=== PATIENT | male | born 1950 | race Caucasian/White ===

== ENCOUNTER 2021-03-16 13:06 | Inpatient (IN) | payer MEDICARE ==
[2021-03-16 14:10] LABS: #Basophils 0.1 thou/uL (0.0-0.2); #Lymphocytes 1.4 thou/uL (1.20-3.40); #Monocytes 0.6 thou/uL (0.11-0.59); #Neutrophils 3.1 thou/uL (1.40-6.50); %Eosinophils 0.4 % (0.0-10.0); %Monocytes 11.2 % (0.0-10.0); %Neutrophils 60.3 % (42.0-75.0); Hemoglobin 15.8 g/dL (14.0-18.0); Mean Corpuscular HGB CONC 34.3 g/dL (32.0-36.0); Mean Corpuscular Hemoglobin 37.6 pg (27.0-31.0); Mean Platelet Volume 8.3 fL (7.4-10.4); Platelet Count 186 thou/uL (130-400); RBC Distribution Width 11.5 % (11.5-14.5); Red Blood Cell (RBC) Count 4.19 mill/uL (4.70-6.10); White Blood Cell (WBC) Count 5.1 thou/uL (4.8-10.8)
[2021-03-16 14:25] LABS: MDiff Complete? YES; Macrocytosis SLIGHT = 6-15 cells (100X) (0-5/hpf); Platelet Morphology Comment Appears Adequate
[2021-03-16 14:31] LABS: Acetaminophen Less than 6.0 mcg/mL (10.0-30.0); Alcohol Less than 10 mg/dL (Less than 10); CK (CPK) 207 U/L (30-200); Salicylate Less than 8.0 mg/dL (15.0-30.0)
[2021-03-16 14:35] LABS: ALT (SGPT) 18 U/L (8-55); AST (SGOT) 23 U/L (5-34); Albumin 4.2 g/dL (3.4-4.8); Alkaline Phosphatase 75 U/L (40-110); Anion Gap 14 mmol/L (10-20); BUN (Urea Nitrogen) 9 mg/dL (8.4-25.7); Bilirubin, Total 1.4 mg/dL (0.2-1.2); Calc. Creatinine Clearance 0 mL/min (70-130); Carbon Dioxide 23 mmol/L (23-31); Chloride 101 mmol/L (98-107); Globulin 2.7 g/dL (2.4-3.5); Glucose 92 mg/dL (80-115); Lipase 35 U/L (8-78); Potassium 4.2 mmol/L (3.5-5.1); Protein, Total 6.9 g/dL (5.8-8.1); Sodium 134 mmol/L (136-145)
[2021-03-16 14:49] LABS: Bilirubin Negative (Negative); Blood, Urine Negative (Negative); Clarity Clear (Clear); Glucose, Urine (Dipstick) Normal (Negative); Ketone, Urine 20 mg/dL (Negative); Leukocyte Negative Leu/uL (Negative); Nitrite Negative (Negative); Protein, Urine (Dipstick) 10 mg/dL (Neg-Trace)
[2021-03-16 15:11] LABS: Amphetamine Not Detected (NotDetected); Barbiturates Screen Not Detected (NotDetected); Benzodiazepine Screen Not Detected (NotDetected); Cocaine Metabolite Screen Not Detected (NotDetected); Methadone Not Detected (NotDetected); Methamphetamine Not Detected (NotDetected); Opiate Screen Not Detected (NotDetected); Oxycodone Screen Not Detected (NotDetected); Phencyclidine (PCP) Not Detected (NotDetected); THC/Cannabinoid Screen Detected (NotDetected); Tricyclic Screen Not Detected (NotDetected)
[2021-03-16] MEDS ORDERED: Lorazepam 2 MG/ML VIAL ONE (16:42)
[2021-03-16] MEDS ORDERED: Haloperidol Lactate 5 MG/ML VIAL ONE (16:55)
[2021-03-16] MEDS ORDERED: Acetaminophen 325 MG TAB PO PRN (17:35)
[2021-03-16] MEDS ORDERED: Ondansetron ODT 4 MG TAB PO PRN (17:35)
[2021-03-16] MEDS ORDERED: Lorazepam 2 MG/ML VIAL IM PRN (17:35)
[2021-03-16] MEDS ORDERED: Electrolyte Replacement Protocol 1 EACH FS SCH (17:45)
[2021-03-16 18:39] LABS: Alcohol Less than 10 mg/dL (Less than 10); Bilirubin, Direct 0.6 mg/dL (0.1-0.3); Phosphorus 2.4 mg/dL (2.3-4.7)
[2021-03-16] MEDS ORDERED: hydrALAZINE 20 MG/ML VIAL SLOW IVP PRN (18:56)
[2021-03-16 18:58] LABS: Syphilis Antibody Nonreactive (Nonreactive); Syphilis Antibody Index 0.05 S/CO (<1.00 Non-Reactive)
[2021-03-16] MEDS: Lorazepam 1 MG TAB PO SCH (21:17)
[2021-03-16] MEDS: Thiamine HCl 200 MG/2 ML VIAL SLOW IVP SCH (22:18)
[2021-03-16 22:20] VITALS: BMI 21.9
[2021-03-17] MEDS: Lorazepam 2 MG/ML VIAL SLOW IVP PRN ×3 (00:53→13:25)
[2021-03-17] MEDS: Lorazepam 1 MG TAB PO SCH ×4 (02:09→18:19)
[2021-03-17] MEDS ORDERED: Ziprasidone 20 MG VIAL IM SCH (06:00)
[2021-03-17] MEDS ORDERED: Sterile Water 10 ML ONE (06:14)
[2021-03-17] MEDS: Folic Acid 1 MG TAB PO SCH ×2 (08:41→08:54)
[2021-03-17] MEDS: Enoxaparin Sodium 40 MG/0.4 ML SYRINGE SC SCH (08:41)
[2021-03-17] MEDS: Multivit, Therapeutic 1 TAB PO SCH ×2 (08:41→08:54)
[2021-03-17 10:20] LABS: #Eosinphils 0.1 thou/uL (0.0-0.7); #Lymphocytes 1.4 thou/uL (1.20-3.40); #Monocytes 0.5 thou/uL (0.11-0.59); #Neutrophils 3.4 thou/uL (1.40-6.50); %Basophils 0.7 % (0.0-1.0); %Eosinophils 1.6 % (0.0-10.0); %Lymphocytes 26.2 % (21.0-51.0); %Monocytes 8.8 % (0.0-10.0); %Neutrophils 62.7 % (42.0-75.0); Hemoglobin 17.2 g/dL (14.0-18.0); Mean Corpuscular HGB CONC 34.1 g/dL (32.0-36.0); Mean Corpuscular Hemoglobin 37.3 pg (27.0-31.0); Mean Platelet Volume 8.2 fL (7.4-10.4); Platelet Count 170 thou/uL (130-400); RBC Distribution Width 11.4 % (11.5-14.5); Red Blood Cell (RBC) Count 4.62 mill/uL (4.70-6.10); White Blood Cell (WBC) Count 5.5 thou/uL (4.8-10.8)
[2021-03-17 10:49] LABS: ALT (SGPT) 19 U/L (8-55); AST (SGOT) 35 U/L (5-34); Alkaline Phosphatase 74 U/L (40-110); Anion Gap 15 mmol/L (10-20); BUN (Urea Nitrogen) 9 mg/dL (8.4-25.7); Bilirubin, Total 1.4 mg/dL (0.2-1.2); CK (CPK) 539 U/L (30-200); Calc. Creatinine Clearance 84 mL/min (70-130); Calcium 9.8 mg/dL (7.8-10.44); Carbon Dioxide 23 mmol/L (23-31); Chloride 100 mmol/L (98-107); Globulin 3.4 g/dL (2.4-3.5); Glucose 85 mg/dL (80-115); Protein, Total 7.4 g/dL (5.8-8.1); Sodium 134 mmol/L (136-145)
[2021-03-17] MEDS: Multivitamins, Adult 10 ML, Folic Acid 1 MG, Thiamine HCl 100 MG in Dextrose 5 %-0.45 %... IV SCH (13:24)
[2021-03-17] MEDS: D5 0.9% NS w/ 20 mEq KCl 1,000 ML IV SCH (13:24)
[2021-03-17 17:06] LABS: SARS-CoV-2 PCR by NAA Not Detected (NotDetected)
[2021-03-17] MEDS ORDERED: Lorazepam 1 MG TAB PO PRN (17:37)
[2021-03-17] MEDS: Thiamine HCl 200 MG/2 ML VIAL SLOW IVP SCH (18:32)
[2021-03-17] MEDS: Labetalol HCl 100 MG/20 ML VIAL SLOW IVP PRN (20:10)
[2021-03-18] MEDS: Lorazepam 1 MG TAB PO SCH ×2 (00:35→05:57)
[2021-03-18] MEDS ORDERED: Lorazepam 2 MG/ML VIAL SLOW IVP SCH (00:45)
[2021-03-18] MEDS: Labetalol HCl 100 MG/20 ML VIAL SLOW IVP PRN ×2 (01:34→22:22)
[2021-03-18] MEDS: D5 0.9% NS w/ 20 mEq KCl 1,000 ML IV SCH ×2 (04:19→17:01)
[2021-03-18 06:22] LABS: #Eosinphils 0.1 thou/uL (0.0-0.7); #Lymphocytes 1.3 thou/uL (1.20-3.40); #Monocytes 0.6 thou/uL (0.11-0.59); #Neutrophils 2.9 thou/uL (1.40-6.50); %Basophils 0.8 % (0.0-1.0); %Eosinophils 2.9 % (0.0-10.0); %Lymphocytes 25.5 % (21.0-51.0); %Monocytes 11.1 % (0.0-10.0); %Neutrophils 59.7 % (42.0-75.0); Hemoglobin 16.3 g/dL (14.0-18.0); Mean Corpuscular HGB CONC 33.9 g/dL (32.0-36.0); Mean Corpuscular Hemoglobin 37.1 pg (27.0-31.0); Mean Platelet Volume 8.3 fL (7.4-10.4); Platelet Count 169 thou/uL (130-400); RBC Distribution Width 11.4 % (11.5-14.5); White Blood Cell (WBC) Count 4.9 thou/uL (4.8-10.8)
[2021-03-18 06:46] LABS: ALT (SGPT) 17 U/L (8-55); AST (SGOT) 29 U/L (5-34); Albumin 3.8 g/dL (3.4-4.8); Alkaline Phosphatase 72 U/L (40-110); Anion Gap 13 mmol/L (10-20); BUN (Urea Nitrogen) 5 mg/dL (8.4-25.7); Bilirubin, Total 1.2 mg/dL (0.2-1.2); Calc. Creatinine Clearance 91 mL/min (70-130); Calcium 9.1 mg/dL (7.8-10.44); Carbon Dioxide 23 mmol/L (23-31); Chloride 103 mmol/L (98-107); Glucose 116 mg/dL (80-115); Magnesium 1.9 mg/dL (1.6-2.6); Potassium 3.6 mmol/L (3.5-5.1); Protein, Total 6.8 g/dL (5.8-8.1); Sodium 135 mmol/L (136-145)
[2021-03-18] MEDS ORDERED: Magnesium 2 GM/50 ML 2 GM in Premix Bag 1 BAG IVPB SCH (08:00)
[2021-03-18] MEDS: Enoxaparin Sodium 40 MG/0.4 ML SYRINGE SC SCH (08:56)
[2021-03-18] MEDS: Lorazepam 2 MG/ML VIAL SLOW IVP PRN ×4 (08:56→23:27)
[2021-03-18] MEDS: Multivitamins, Adult 10 ML, Folic Acid 1 MG, Thiamine HCl 100 MG in Dextrose 5 %-0.45 %... IV SCH (13:06)
[2021-03-18] MEDS ORDERED: Lorazepam 1 MG TAB PO PRN (17:37)
[2021-03-18] MEDS: Thiamine HCl 200 MG/2 ML VIAL SLOW IVP SCH (17:53)
[2021-03-18] MEDS ORDERED: Lorazepam 0.5 MG TAB PO SCH (18:00)
[2021-03-19] MEDS: Lorazepam 2 MG/ML VIAL SLOW IVP PRN ×4 (01:49→21:03)
[2021-03-19 05:46] LABS: #Eosinphils 0.2 thou/uL (0.0-0.7); #Monocytes 0.5 thou/uL (0.11-0.59); #Neutrophils 2.6 thou/uL (1.40-6.50); %Basophils 0.8 % (0.0-1.0); %Eosinophils 3.8 % (0.0-10.0); %Lymphocytes 23.7 % (21.0-51.0); %Neutrophils 59.7 % (42.0-75.0); Hemoglobin 15.5 g/dL (14.0-18.0); Mean Corpuscular HGB CONC 35.4 g/dL (32.0-36.0); Mean Corpuscular Hemoglobin 38.3 pg (27.0-31.0); Platelet Count 169 thou/uL (130-400); RBC Distribution Width 11.3 % (11.5-14.5); Red Blood Cell (RBC) Count 4.03 mill/uL (4.70-6.10); White Blood Cell (WBC) Count 4.4 thou/uL (4.8-10.8)
[2021-03-19 06:11] LABS: ALT (SGPT) 17 U/L (8-55); AST (SGOT) 28 U/L (5-34); Albumin 3.5 g/dL (3.4-4.8); Alkaline Phosphatase 69 U/L (40-110); Anion Gap 11 mmol/L (10-20); BUN (Urea Nitrogen) Less than 4 mg/dL (8.4-25.7); Bilirubin, Total 1.5 mg/dL (0.2-1.2); Calc. Creatinine Clearance 104 mL/min (70-130); Calcium 8.7 mg/dL (7.8-10.44); Carbon Dioxide 21 mmol/L (23-31); Chloride 104 mmol/L (98-107); Globulin 2.8 g/dL (2.4-3.5); Glucose 116 mg/dL (80-115); Potassium 3.8 mmol/L (3.5-5.1); Protein, Total 6.3 g/dL (5.8-8.1); Sodium 132 mmol/L (136-145)
[2021-03-19] MEDS: D5 0.9% NS w/ 20 mEq KCl 1,000 ML IV SCH ×2 (09:00→20:48)
[2021-03-19] MEDS ORDERED: cloNIDine 0.1mg/24 Hour PATCH TD SCH (09:00)
[2021-03-19] MEDS: Enoxaparin Sodium 40 MG/0.4 ML SYRINGE SC SCH (09:37)
[2021-03-19] MEDS: Multivitamins, Adult 10 ML, Folic Acid 1 MG, Thiamine HCl 100 MG in Dextrose 5 %-0.45 %... IV SCH (13:07)
[2021-03-19] MEDS ORDERED: Lorazepam 0.5 MG TAB PO PRN (17:37)
[2021-03-19] MEDS ORDERED: Thiamine 100 MG TAB PO SCH (18:00)
[2021-03-19] MEDS: Labetalol HCl 100 MG/20 ML VIAL SLOW IVP PRN (21:03)
[2021-03-20 05:31] LABS: #Eosinphils 0.2 thou/uL (0.0-0.7); #Lymphocytes 1.1 thou/uL (1.20-3.40); #Monocytes 0.5 thou/uL (0.11-0.59); #Neutrophils 3.4 thou/uL (1.40-6.50); %Basophils 0.2 % (0.0-1.0); %Eosinophils 3.7 % (0.0-10.0); %Lymphocytes 20.5 % (21.0-51.0); %Monocytes 10.2 % (0.0-10.0); %Neutrophils 65.4 % (42.0-75.0); Hemoglobin 15.7 g/dL (14.0-18.0); Mean Corpuscular HGB CONC 34.9 g/dL (32.0-36.0); Mean Corpuscular Hemoglobin 37.8 pg (27.0-31.0); Mean Platelet Volume 8.1 fL (7.4-10.4); Platelet Count 183 thou/uL (130-400); RBC Distribution Width 11.4 % (11.5-14.5); Red Blood Cell (RBC) Count 4.16 mill/uL (4.70-6.10); White Blood Cell (WBC) Count 5.2 thou/uL (4.8-10.8)
[2021-03-20 05:56] LABS: ALT (SGPT) 18 U/L (8-55); AST (SGOT) 25 U/L (5-34); Albumin 3.7 g/dL (3.4-4.8); Alkaline Phosphatase 73 U/L (40-110); Anion Gap 10 mmol/L (10-20); BUN (Urea Nitrogen) 4 mg/dL (8.4-25.7); Bilirubin, Total 1.6 mg/dL (0.2-1.2); Calc. Creatinine Clearance 98 mL/min (70-130); Carbon Dioxide 23 mmol/L (23-31); Chloride 99 mmol/L (98-107); Globulin 2.9 g/dL (2.4-3.5); Glucose 110 mg/dL (80-115); Protein, Total 6.6 g/dL (5.8-8.1); Sodium 128 mmol/L (136-145)
[2021-03-20] MEDS: D5 0.9% NS w/ 20 mEq KCl 1,000 ML IV SCH ×2 (08:35→22:20)
[2021-03-20] MEDS: Lorazepam 2 MG/ML VIAL SLOW IVP PRN ×2 (08:35→23:16)
[2021-03-20] MEDS: Labetalol HCl 100 MG/20 ML VIAL SLOW IVP PRN ×2 (08:35→20:30)
[2021-03-20] MEDS: Enoxaparin Sodium 40 MG/0.4 ML SYRINGE SC SCH (10:07)
[2021-03-20] MEDS: Multivitamins, Adult 10 ML, Folic Acid 1 MG, Thiamine HCl 100 MG in Dextrose 5 %-0.45 %... IV SCH (11:31)
[2021-03-21 06:09] LABS: #Eosinphils 0.1 thou/uL (0.0-0.7); #Lymphocytes 0.9 thou/uL (1.20-3.40); #Monocytes 0.7 thou/uL (0.11-0.59); #Neutrophils 3.5 thou/uL (1.40-6.50); %Basophils 0.7 % (0.0-1.0); %Eosinophils 2.3 % (0.0-10.0); %Lymphocytes 17.5 % (21.0-51.0); %Monocytes 13.4 % (0.0-10.0); %Neutrophils 66.1 % (42.0-75.0); Hemoglobin 14.7 g/dL (14.0-18.0); Mean Corpuscular HGB CONC 34.9 g/dL (32.0-36.0); Mean Corpuscular Hemoglobin 38.1 pg (27.0-31.0); Mean Platelet Volume 8.1 fL (7.4-10.4); Platelet Count 183 thou/uL (130-400); RBC Distribution Width 11.2 % (11.5-14.5); Red Blood Cell (RBC) Count 3.86 mill/uL (4.70-6.10); White Blood Cell (WBC) Count 5.3 thou/uL (4.8-10.8)
[2021-03-21 06:32] LABS: ALT (SGPT) 18 U/L (8-55); AST (SGOT) 22 U/L (5-34); Albumin 3.5 g/dL (3.4-4.8); Alkaline Phosphatase 68 U/L (40-110); Anion Gap 12 mmol/L (10-20); BUN (Urea Nitrogen) 4 mg/dL (8.4-25.7); Bilirubin, Total 1.6 mg/dL (0.2-1.2); Calc. Creatinine Clearance 98 mL/min (70-130); Calcium 9.3 mg/dL (7.8-10.44); Carbon Dioxide 20 mmol/L (23-31); Chloride 103 mmol/L (98-107); Globulin 2.8 g/dL (2.4-3.5); Glucose 115 mg/dL (80-115); Protein, Total 6.3 g/dL (5.8-8.1); Sodium 131 mmol/L (136-145)
[2021-03-21] MEDS: Aspirin 81 mg Enteric Coated Tablet PO SCH (09:20)
[2021-03-21] MEDS: Lisinopril 20 MG TAB PO SCH (09:20)
[2021-03-21] MEDS: Enoxaparin Sodium 40 MG/0.4 ML SYRINGE SC SCH (09:20)
[2021-03-21] MEDS: Nicotine 21 MG PATCH TD SCH (09:22)
[2021-03-21] MEDS: Lorazepam 2 MG/ML VIAL SLOW IVP PRN ×2 (15:11→19:53)
[2021-03-21] MEDS: Multivitamins, Adult 10 ML, Folic Acid 1 MG, Thiamine HCl 100 MG in Dextrose 5 %-0.45 %... IV SCH (15:26)
[2021-03-21] MEDS: D5 0.9% NS w/ 20 mEq KCl 1,000 ML IV SCH (15:26)
[2021-03-21] MEDS: Nystatin Powder 15 GM BOT TOP PRN (17:19)
[2021-03-22] MEDS: D5 0.9% NS w/ 20 mEq KCl 1,000 ML IV SCH ×2 (05:05→18:19)
[2021-03-22 06:26] LABS: ALT (SGPT) 16 U/L (8-55); AST (SGOT) 20 U/L (5-34); Albumin 3.5 g/dL (3.4-4.8); Alkaline Phosphatase 63 U/L (40-110); Anion Gap 15 mmol/L (10-20); BUN (Urea Nitrogen) 6 mg/dL (8.4-25.7); Calc. Creatinine Clearance 99 mL/min (70-130); Calcium 9.5 mg/dL (7.8-10.44); Carbon Dioxide 20 mmol/L (23-31); Chloride 102 mmol/L (98-107); Glucose 107 mg/dL (80-115); Potassium 3.6 mmol/L (3.5-5.1); Protein, Total 6.5 g/dL (5.8-8.1); Sodium 133 mmol/L (136-145)
[2021-03-22 06:58] LABS: Band 1 % (5-11); Eosinophils 2 % (0-10); Hemoglobin 15.4 g/dL (14.0-18.0); Lymphocytes 33 % (21-51); MDiff Complete? YES; Macrocytosis SLIGHT = 6-15 cells (100X) (0-5/hpf); Mean Corpuscular HGB CONC 34.9 g/dL (32.0-36.0); Mean Corpuscular Hemoglobin 38.4 pg (27.0-31.0); Mean Platelet Volume 9.5 fL (7.4-10.4); Monocytes 15 % (0-10); Neutrophil 47 % (42-75); Platelet Count 138 thou/uL (130-400); Platelet Morphology Comment Appears Adequate; RBC Distribution Width 11.1 % (11.5-14.5); Reactive Lymphocytes 2 % (0-10); White Blood Cell (WBC) Count 4.3 thou/uL (4.8-10.8)
[2021-03-22] MEDS: Lisinopril 20 MG TAB PO SCH (09:20)
[2021-03-22] MEDS: Enoxaparin Sodium 40 MG/0.4 ML SYRINGE SC SCH (09:20)
[2021-03-22] MEDS: Nicotine 21 MG PATCH TD SCH (09:20)
[2021-03-22] MEDS: Aspirin 81 mg Enteric Coated Tablet PO SCH (09:20)
[2021-03-22] MEDS: Multivitamins, Adult 10 ML, Folic Acid 1 MG, Thiamine HCl 100 MG in Dextrose 5 %-0.45 %... IV SCH (13:12)
[2021-03-22] MEDS: Nystatin Powder 15 GM BOT TOP PRN (13:15)
[2021-03-22] MEDS ORDERED: Thiamine 100 MG TAB PO SCH (17:45)
[2021-03-23] MEDS ORDERED: Thiamine 100 MG TAB PO SCH (09:00)
[2021-03-23] MEDS: Lisinopril 20 MG TAB PO SCH (09:03)
[2021-03-23] MEDS: Nicotine 21 MG PATCH TD SCH (09:03)
[2021-03-23] MEDS: Enoxaparin Sodium 40 MG/0.4 ML SYRINGE SC SCH (09:03)
[2021-03-23] MEDS: Aspirin 81 mg Enteric Coated Tablet PO SCH (09:03)
[2021-03-23] MEDS: Labetalol HCl 100 MG/20 ML VIAL SLOW IVP PRN (15:33)
[2021-03-23 15:51] VITALS: BP 213/120; TEMP 98.8
== END 2021-03-23 19:30 | disposition home or self-care (01) | DRG 896 ==
LOC: ERS 13:06 → NEURO 17:21
PROVIDERS: ADMIT Internal Medicine; ATTEND Family Medicine
DX: F10.231 Alcohol dependence with withdrawal delirium (principal); G92.8 Other toxic encephalopathy; E44.0 Moderate protein-calorie malnutrition; E87.1 Hypo-osmolality and hyponatremia; Z20.822 Contact with and (suspected) exposure to COVID-19; J44.9 Chronic obstructive pulmonary disease, unspecified; I10 Essential (primary) hypertension; N40.0 Benign prostatic hyperplasia without lower urinary tract symptoms; F17.210 Nicotine dependence, cigarettes, uncomplicated; F12.10 Cannabis abuse, uncomplicated; Z68.22 Body mass index [BMI] 22.0-22.9, adult; Z78.1 Physical restraint status
CPT/HCPCS: 36415; 36416; 70450; 71045; 80053; 80306; 80307; 81003; 82140; 82248; 82550; 82607; 82746; 83605; 83690; 83735; 83880; 84100; 84443; 84484; 85025; 86780; 87040; 87086; 93005; 94760; 95816; 95819; 95957; J0360; J1630; J1650; J2060; J3411; J3475; J3480; J3486; J7042; U0003; U0005

== ENCOUNTER 2021-10-19 20:59 | Inpatient (IN) | payer MEDICARE ==
[2021-10-19 21:56] LABS: #Eosinphils 0.2 thou/uL (0.0-0.7); #Lymphocytes 2.1 thou/uL (1.20-3.40); #Monocytes 0.5 thou/uL (0.11-0.59); #Neutrophils 3.7 thou/uL (1.40-6.50); %Basophils 0.5 % (0.0-1.0); %Lymphocytes 31.7 % (21.0-51.0); %Neutrophils 56.8 % (42.0-75.0); Hemoglobin 10.8 g/dL (14.0-18.0); Mean Corpuscular HGB CONC 36.1 g/dL (32.0-36.0); Mean Platelet Volume 7.5 fL (7.4-10.4); Platelet Count 268 thou/uL (130-400); RBC Distribution Width 11.3 % (11.5-14.5); Red Blood Cell (RBC) Count 2.76 mill/uL (4.70-6.10); White Blood Cell (WBC) Count 6.5 thou/uL (4.8-10.8)
[2021-10-19 22:15] LABS: ALT (SGPT) 12 U/L (8-55); AST (SGOT) 14 U/L (5-34); Albumin 3.9 g/dL (3.4-4.8); Alkaline Phosphatase 74 U/L (40-110); Anion Gap 14 mmol/L (10-20); BUN (Urea Nitrogen) 25 mg/dL (8.4-25.7); Bilirubin, Total 0.7 mg/dL (0.2-1.2); CK (CPK) 42 U/L (30-200); Calc. Creatinine Clearance 0 mL/min (70-130); Calcium 10.3 mg/dL (7.8-10.44); Carbon Dioxide 26 mmol/L (23-31); Chloride 99 mmol/L (98-107); Globulin 2.7 g/dL (2.4-3.5); Glucose 104 mg/dL (80-115); Potassium 3.8 mmol/L (3.5-5.1); Protein, Total 6.6 g/dL (5.8-8.1); Sodium 135 mmol/L (136-145)
[2021-10-19] MEDS ORDERED: Magnesium 2 GM/50 ML BAG (IN WATER) ONE (22:19)
[2021-10-20] MEDS ORDERED: Acetaminophen 325 MG TAB PO PRN (01:00)
[2021-10-20] MEDS ORDERED: Ondansetron PF 4 MG/2 ML Vial IVP PRN ×2 (01:00→03:08)
[2021-10-20] MEDS ORDERED: Ondansetron ODT 4 MG TAB SL PRN (01:00)
[2021-10-20] MEDS ORDERED: Sodium Chloride 0.9% 1,000 ML IV SCH (01:00)
[2021-10-20] MEDS ORDERED: Senokot S 8.6-50 MG TAB PO SCH (02:00)
[2021-10-20] MEDS ORDERED: Polyethylene Glycol 3350 17 GM Packet PO SCH (02:00)
[2021-10-20] MEDS ORDERED: Acetaminophen 500 MG TAB PO PRN (03:08)
[2021-10-20] MEDS ORDERED: Ondansetron ODT 4 MG TAB PO PRN (03:08)
[2021-10-20 07:47] LABS: #Eosinphils 0.3 thou/uL (0.0-0.7); #Lymphocytes 1.8 thou/uL (1.20-3.40); #Monocytes 0.5 thou/uL (0.11-0.59); #Neutrophils 4.8 thou/uL (1.40-6.50); %Basophils 0.3 % (0.0-1.0); %Eosinophils 3.7 % (0.0-10.0); %Monocytes 6.9 % (0.0-10.0); %Neutrophils 65.1 % (42.0-75.0); Hemoglobin 10.9 g/dL (14.0-18.0); Mean Corpuscular HGB CONC 34.3 g/dL (32.0-36.0); Mean Corpuscular Hemoglobin 37.3 pg (27.0-31.0); Mean Platelet Volume 7.4 fL (7.4-10.4); Platelet Count 254 thou/uL (130-400); RBC Distribution Width 11.3 % (11.5-14.5); Red Blood Cell (RBC) Count 2.92 mill/uL (4.70-6.10); White Blood Cell (WBC) Count 7.4 thou/uL (4.8-10.8)
[2021-10-20 07:53] LABS: ALT (SGPT) 14 U/L (8-55); AST (SGOT) 13 U/L (5-34); Albumin 3.9 g/dL (3.4-4.8); Alkaline Phosphatase 72 U/L (40-110); Anion Gap 12 mmol/L (10-20); BUN (Urea Nitrogen) 22 mg/dL (8.4-25.7); Bilirubin, Total 0.7 mg/dL (0.2-1.2); Calc. Creatinine Clearance 46 mL/min (70-130); Calcium 10.2 mg/dL (7.8-10.44); Carbon Dioxide 26 mmol/L (23-31); Chloride 101 mmol/L (98-107); Globulin 2.6 g/dL (2.4-3.5); Glucose 95 mg/dL (80-115); Potassium 4.2 mmol/L (3.5-5.1); Protein, Total 6.5 g/dL (5.8-8.1); Sodium 135 mmol/L (136-145)
[2021-10-20 08:30] LABS: MDiff Complete? YES; Macrocytosis SLIGHT = 6-15 cells (100X) (0-5/hpf); Platelet Morphology Comment Appears Adequate; Polychromasia SLIGHT = 2-3 cells (100X) (0-2/hpf)
[2021-10-20] MEDS: Famotidine 20 MG TAB PO SCH (08:42)
[2021-10-20] MEDS: Aspirin 81 mg Enteric Coated Tablet PO SCH (08:42)
[2021-10-20] MEDS: Thiamine 100 MG TAB PO SCH (08:42)
[2021-10-20] MEDS: Polyethylene Glycol 3350 17 GM Packet PO SCH (08:43)
[2021-10-20] MEDS: Senokot S 8.6-50 MG TAB PO SCH ×2 (08:43→20:20)
[2021-10-20 09:38] LABS: Magnesium 2.2 mg/dL (1.6-2.6)
[2021-10-20] MEDS: Sodium Chloride 0.9% 1,000 ML IV SCH ×2 (11:35→22:13)
[2021-10-20] MEDS ORDERED: Lorazepam 1 MG TAB PO PRN (15:22)
[2021-10-20] MEDS ORDERED: Lorazepam 2 MG/ML VIAL IM PRN (15:22)
[2021-10-20] MEDS ORDERED: Electrolyte Replacement Protocol 1 EACH FS SCH (15:30)
[2021-10-20 16:26] LABS: #Eosinphils 0.2 thou/uL (0.0-0.7); #Lymphocytes 1.6 thou/uL (1.20-3.40); #Monocytes 0.5 thou/uL (0.11-0.59); #Neutrophils 5.1 thou/uL (1.40-6.50); %Basophils 0.4 % (0.0-1.0); %Eosinophils 2.8 % (0.0-10.0); %Lymphocytes 20.9 % (21.0-51.0); %Neutrophils 68.9 % (42.0-75.0); Hemoglobin 10.7 g/dL (14.0-18.0); Mean Corpuscular HGB CONC 35.6 g/dL (32.0-36.0); Mean Corpuscular Hemoglobin 38.6 pg (27.0-31.0); Mean Platelet Volume 7.3 fL (7.4-10.4); Platelet Count 266 thou/uL (130-400); RBC Distribution Width 11.2 % (11.5-14.5); Red Blood Cell (RBC) Count 2.77 mill/uL (4.70-6.10); White Blood Cell (WBC) Count 7.4 thou/uL (4.8-10.8)
[2021-10-20] MEDS ORDERED: Multivit, Therapeutic 1 TAB PO SCH (16:45)
[2021-10-20] MEDS ORDERED: Electrolyte Replacement Protocol FS PRN (16:45)
[2021-10-20] MEDS ORDERED: Lorazepam 0.5 MG TAB PO SCH (16:45)
[2021-10-20] MEDS ORDERED: Folic Acid 1 MG TAB PO SCH (16:45)
[2021-10-20] MEDS: Lorazepam 1 MG TAB PO SCH ×2 (17:25→22:55)
[2021-10-20] MEDS ORDERED: Nicotine 7 MG PATCH TD SCH (18:00)
[2021-10-20 18:36] LABS: Syphilis Antibody Nonreactive (Nonreactive); Syphilis Antibody Index 0.06 S/CO (<1.00 Non-Reactive)
[2021-10-20] MEDS ORDERED: hydrOXYzine 25 MG TAB PO SCH (21:00)
[2021-10-21] MEDS: Lorazepam 1 MG TAB PO SCH ×4 (01:53→19:33)
[2021-10-21] MEDS ORDERED: Magnesium 2 GM/50 ML(in water) 2 GM in Premix Bag 1 BAG IVPB SCH (08:00)
[2021-10-21] MEDS ORDERED: hydrALAZINE 20 MG/ML VIAL SLOW IVP PRN (09:22)
[2021-10-21] MEDS ORDERED: Artificial Tear Sol 15 ML BOT EA EYE PRN (09:22)
[2021-10-21] MEDS ORDERED: Cepastat Lozenges 1 LOZ PO PRN (09:22)
[2021-10-21] MEDS ORDERED: Moisturizing Cream (Eucerin) 113 GM JAR TOP PRN (09:22)
[2021-10-21] MEDS ORDERED: Sodium Chloride 0.65% Nasal 44 ML BOT EA NARE PRN (09:22)
[2021-10-21] MEDS ORDERED: GUAIFENESIN SF SOLN 200 MG/10 ML UDCUP PO PRN (09:22)
[2021-10-21] MEDS ORDERED: Loperamide HCl 2 MG CAP PO PRN (09:22)
[2021-10-21] MEDS: Sodium Chloride 0.9% 1,000 ML IV SCH ×2 (12:00→17:50)
[2021-10-21] MEDS ORDERED: Nicotine 21 MG PATCH TD SCH (12:45)
[2021-10-21] MEDS: Multivit, Therapeutic 1 TAB PO SCH (12:47)
[2021-10-21] MEDS: Folic Acid 1 MG TAB PO SCH (12:47)
[2021-10-21] MEDS: Famotidine 20 MG TAB PO SCH (12:47)
[2021-10-21] MEDS: Senokot S 8.6-50 MG TAB PO SCH ×2 (12:47→19:32)
[2021-10-21] MEDS: Thiamine 100 MG TAB PO SCH (12:47)
[2021-10-21] MEDS: Aspirin 81 mg Enteric Coated Tablet PO SCH (12:47)
[2021-10-21] MEDS: Polyethylene Glycol 3350 17 GM Packet PO SCH (12:48)
[2021-10-21] MEDS ORDERED: Lorazepam 1 MG TAB PO PRN (15:22)
[2021-10-21 23:14] LABS: Amphetamine Not Detected (NotDetected); Barbiturates Screen Not Detected (NotDetected); Benzodiazepine Screen Detected (NotDetected); Cocaine Metabolite Screen Not Detected (NotDetected); Methadone Not Detected (NotDetected); Methamphetamine Not Detected (NotDetected); Opiate Screen Not Detected (NotDetected); Oxycodone Screen Not Detected (NotDetected); Phencyclidine (PCP) Not Detected (NotDetected); THC/Cannabinoid Screen Detected (NotDetected); Tricyclic Screen Not Detected (NotDetected)
[2021-10-22] MEDS: Acetaminophen 500 MG TAB PO PRN ×3 (00:18→20:06)
[2021-10-22] MEDS: Sodium Chloride 0.9% 1,000 ML IV SCH ×2 (00:20→15:00)
[2021-10-22] MEDS: Lorazepam 1 MG TAB PO SCH ×2 (06:19→12:11)
[2021-10-22 07:39] LABS: #Eosinphils 0.3 thou/uL (0.0-0.7); #Lymphocytes 1.6 thou/uL (1.20-3.40); #Monocytes 0.4 thou/uL (0.11-0.59); #Neutrophils 1.7 thou/uL (1.40-6.50); %Eosinophils 7.9 % (0.0-10.0); %Lymphocytes 40.4 % (21.0-51.0); %Monocytes 8.8 % (0.0-10.0); Hemoglobin 9.4 g/dL (14.0-18.0); Mean Corpuscular HGB CONC 36.3 g/dL (32.0-36.0); Mean Corpuscular Hemoglobin 39.4 pg (27.0-31.0); Mean Platelet Volume 7.4 fL (7.4-10.4); Platelet Count 217 thou/uL (130-400); RBC Distribution Width 11.2 % (11.5-14.5); Red Blood Cell (RBC) Count 2.38 mill/uL (4.70-6.10); White Blood Cell (WBC) Count 3.9 thou/uL (4.8-10.8)
[2021-10-22 08:00] LABS: ALT (SGPT) 10 U/L (8-55); AST (SGOT) 15 U/L (5-34); Albumin 3.2 g/dL (3.4-4.8); Alkaline Phosphatase 68 U/L (40-110); BUN (Urea Nitrogen) 12 mg/dL (8.4-25.7); Bilirubin, Total 0.6 mg/dL (0.2-1.2); Calc. Creatinine Clearance 66 mL/min (70-130); Calcium 9.2 mg/dL (7.8-10.44); Carbon Dioxide 23 mmol/L (23-31); Chloride 109 mmol/L (98-107); Globulin 2.2 g/dL (2.4-3.5); Glucose 89 mg/dL (80-115); Magnesium 1.9 mg/dL (1.6-2.6); Phosphorus 4.1 mg/dL (2.3-4.7); Potassium 3.9 mmol/L (3.5-5.1); Protein, Total 5.4 g/dL (5.8-8.1); Sodium 140 mmol/L (136-145)
[2021-10-22 08:11] LABS: Anion Gap 12 mmol/L (10-20)
[2021-10-22] MEDS: Folic Acid 1 MG TAB PO SCH (08:23)
[2021-10-22] MEDS: Famotidine 20 MG TAB PO SCH (08:23)
[2021-10-22] MEDS: Aspirin 81 mg Enteric Coated Tablet PO SCH (08:23)
[2021-10-22] MEDS: Nicotine 21 MG PATCH TD SCH (08:23)
[2021-10-22] MEDS: Multivit, Therapeutic 1 TAB PO SCH (08:23)
[2021-10-22] MEDS: Thiamine 100 MG TAB PO SCH (08:23)
[2021-10-22] MEDS: Polyethylene Glycol 3350 17 GM Packet PO SCH (08:24)
[2021-10-22] MEDS: Senokot S 8.6-50 MG TAB PO SCH ×2 (08:24→20:08)
[2021-10-22] MEDS ORDERED: Lorazepam 1 MG TAB PO PRN (15:22)
[2021-10-22] MEDS: Lorazepam 0.5 MG TAB PO SCH (17:01)
[2021-10-22 21:39] VITALS: TEMP 97.5
[2021-10-23] MEDS: Sodium Chloride 0.9% 1,000 ML IV SCH ×2 (01:15→11:21)
[2021-10-23] MEDS: Acetaminophen 500 MG TAB PO PRN ×2 (02:12→17:21)
[2021-10-23] MEDS: Lorazepam 0.5 MG TAB PO SCH ×3 (02:15→11:46)
[2021-10-23] MEDS: Famotidine 20 MG TAB PO SCH (08:04)
[2021-10-23] MEDS: Nicotine 21 MG PATCH TD SCH (08:04)
[2021-10-23] MEDS: Folic Acid 1 MG TAB PO SCH (08:04)
[2021-10-23] MEDS: Multivit, Therapeutic 1 TAB PO SCH (08:04)
[2021-10-23] MEDS: Thiamine 100 MG TAB PO SCH (08:04)
[2021-10-23] MEDS: Aspirin 81 mg Enteric Coated Tablet PO SCH (08:04)
[2021-10-23] MEDS: Senokot S 8.6-50 MG TAB PO SCH (08:05)
[2021-10-23] MEDS: Polyethylene Glycol 3350 17 GM Packet PO SCH (08:05)
[2021-10-23 08:29] VITALS: BP 115/68
[2021-10-23 12:11] VITALS: BMI 17.9
[2021-10-23] MEDS ORDERED: Lorazepam 0.5 MG TAB PO PRN (15:22)
== END 2021-10-23 17:24 | DRG 896 ==
LOC: ERS 20:59 → 2SW 22:57 → OBSVTOIN 10-20 15:13 → T4-A 10-21 00:37
PROVIDERS: ADMIT Internal Medicine; ATTEND Internal Medicine
PROC: HZ2ZZZZ Detoxification Services for Substance Abuse Treatment (ICD-10-PCS; principal; 2021-10-20)
DX: F10.231 Alcohol dependence with withdrawal delirium (principal); G93.41 Metabolic encephalopathy; E44.0 Moderate protein-calorie malnutrition; R64 Cachexia; N17.9 Acute kidney failure, unspecified; Z20.822 Contact with and (suspected) exposure to COVID-19; N40.0 Benign prostatic hyperplasia without lower urinary tract symptoms; J44.9 Chronic obstructive pulmonary disease, unspecified; I51.89 Other ill-defined heart diseases; D75.89 Other specified diseases of blood and blood-forming organs; F17.210 Nicotine dependence, cigarettes, uncomplicated; E86.9 Volume depletion, unspecified; I95.89 Other hypotension; D52.9 Folate deficiency anemia, unspecified; Z98.890 Other specified postprocedural states; Z79.899 Other long term (current) drug therapy; Z78.1 Physical restraint status; Z28.21 Immunization not carried out because of patient refusal; Z82.49 Family history of ischemic heart disease and other diseases of the circulatory system
CPT/HCPCS: 36415; 70551; 71045; 80053; 80306; 82550; 82607; 82746; 83605; 83735; 83880; 84100; 84443; 84484; 85025; 86780; 86850; 86900; 86901; 93005; 95712; 95819; 95957; 96365; 96366; 96375; G0378; J2060; J3411; J3475; J7050; U0003; U0005

== ENCOUNTER 2021-11-22 02:03 | Emergency (ER) | payer MEDICARE ==
[2021-11-22 03:37] LABS: #Eosinphils 0.1 thou/uL (0.0-0.7); #Lymphocytes 1.5 thou/uL (1.20-3.40); #Monocytes 0.4 thou/uL (0.11-0.59); #Neutrophils 2.5 thou/uL (1.40-6.50); %Basophils 0.2 % (0.0-1.0); %Lymphocytes 33.2 % (21.0-51.0); %Monocytes 9.2 % (0.0-10.0); %Neutrophils 54.3 % (42.0-75.0); Hemoglobin 10.1 g/dL (14.0-18.0); Mean Corpuscular HGB CONC 33.9 g/dL (32.0-36.0); Mean Corpuscular Hemoglobin 38.2 pg (27.0-31.0); Mean Platelet Volume 6.9 fL (7.4-10.4); Platelet Count 302 thou/uL (130-400); Red Blood Cell (RBC) Count 2.65 mill/uL (4.70-6.10); White Blood Cell (WBC) Count 4.6 thou/uL (4.8-10.8)
[2021-11-22 03:50] LABS: ALT (SGPT) 11 U/L (8-55); AST (SGOT) 11 U/L (5-34); Alcohol Less than 10 mg/dL (Less than 10); Alkaline Phosphatase 66 U/L (40-110); Anion Gap 15 mmol/L (10-20); BUN (Urea Nitrogen) 14 mg/dL (8.4-25.7); Bilirubin, Total 0.9 mg/dL (0.2-1.2); Calc. Creatinine Clearance 0 mL/min (70-130); Calcium 9.4 mg/dL (7.8-10.44); Carbon Dioxide 26 mmol/L (23-31); Chloride 107 mmol/L (98-107); Estimated GFR 76; Globulin 2.4 g/dL (2.4-3.5); Glucose 103 mg/dL (80-115); Potassium 3.6 mmol/L (3.5-5.1); Protein, Total 6.4 g/dL (5.8-8.1); Sodium 144 mmol/L (136-145)
[2021-11-22 03:51] LABS: Acetaminophen Less than 10.0 mcg/mL (10.0-30.0); Alcohol Less than 10 mg/dL (Less than 10); Salicylate Less than 8.0 mg/dL (15.0-30.0)
[2021-11-22 04:01] LABS: INR-International Normal Ratio 1.1; Prothrombin Time 14.3 sec (12.0-14.7)
[2021-11-22 04:02] LABS: PTT 39.1 sec (22.9-36.1)
[2021-11-22 04:47] LABS: Bacteria/HPF None Seen HPF (None Seen); Bilirubin Negative (Negative); Blood, Urine Trace (Negative); Clarity Clear (Clear); Glucose, Urine (Dipstick) Normal (Negative); Ketone, Urine Negative (Negative); Leukocyte Negative Leu/uL (Negative); Nitrite Negative (Negative); Protein, Urine (Dipstick) Negative (Neg-Trace); RBC/HPF 0-3 HPF (0-3); Squamous Epithelial 0-3 HPF (0-3); Urobilinogen Normal mg/dL (Less than 2); WBC/HPF 0-3 HPF (0-3); pH, Urine 5.5 (5.0-9.0)
[2021-11-22 04:54] LABS: Amphetamine Not Detected (NotDetected); Barbiturates Screen Not Detected (NotDetected); Benzodiazepine Screen Not Detected (NotDetected); Cocaine Metabolite Screen Not Detected (NotDetected); Methadone Not Detected (NotDetected); Methamphetamine Not Detected (NotDetected); Opiate Screen Not Detected (NotDetected); Oxycodone Screen Not Detected (NotDetected); Phencyclidine (PCP) Not Detected (NotDetected); THC/Cannabinoid Screen Not Detected (NotDetected); Tricyclic Screen Not Detected (NotDetected)
== END 2021-11-22 06:36 | disposition home or self-care (01) ==
LOC: ERS 02:03
DX: S70.01XA Contusion of right hip, initial encounter (principal); R41.82 Altered mental status, unspecified; J44.9 Chronic obstructive pulmonary disease, unspecified; I10 Essential (primary) hypertension; N40.0 Benign prostatic hyperplasia without lower urinary tract symptoms; F17.210 Nicotine dependence, cigarettes, uncomplicated; W19.XXXA Unspecified fall, initial encounter
CPT/HCPCS: 36415; 70450; 71045; 72125; 72170; 80053; 80306; 80307; 81003; 81015; 82140; 85025; 85610; 85730; 87086; 93005

== ENCOUNTER 2021-12-30 12:27 | Inpatient (IN) | payer MEDICARE ==
[2021-12-30] MEDS ORDERED: Ziprasidone 20 MG VIAL ONE (12:33)
[2021-12-30] MEDS ORDERED: Sterile Water 10 ML ONE (12:34)
[2021-12-30] MEDS ORDERED: diphenhydrAMINE 50 MG/ML VIAL ONE (13:00)
[2021-12-30] MEDS ORDERED: Haloperidol Lactate 5 MG/ML VIAL ONE (13:00)
[2021-12-30 13:25] LABS: #Eosinphils 0.2 thou/uL (0.0-0.7); #Lymphocytes 1.7 thou/uL (1.20-3.40); #Monocytes 0.4 thou/uL (0.11-0.59); #Neutrophils 2.7 thou/uL (1.40-6.50); %Basophils 0.5 % (0.0-1.0); %Eosinophils 4.5 % (0.0-10.0); %Lymphocytes 33.4 % (21.0-51.0); %Monocytes 8.2 % (0.0-10.0); %Neutrophils 53.5 % (42.0-75.0); Hemoglobin 11.3 g/dL (14.0-18.0); Mean Corpuscular HGB CONC 33.6 g/dL (32.0-36.0); Mean Corpuscular Hemoglobin 34.9 pg (27.0-31.0); Mean Platelet Volume 7.4 fL (7.4-10.4); Platelet Count 225 thou/uL (130-400); RBC Distribution Width 11.4 % (11.5-14.5); Red Blood Cell (RBC) Count 3.25 mill/uL (4.70-6.10); White Blood Cell (WBC) Count 5.1 thou/uL (4.8-10.8)
[2021-12-30 13:45] LABS: ALT (SGPT) 9 U/L (8-55); AST (SGOT) 16 U/L (5-34); Albumin 4.2 g/dL (3.4-4.8); Alkaline Phosphatase 97 U/L (40-110); Anion Gap 15 mmol/L (10-20); BUN (Urea Nitrogen) 16 mg/dL (8.4-25.7); Bilirubin, Total 0.4 mg/dL (0.2-1.2); Calc. Creatinine Clearance 0 mL/min (70-130); Calcium 9.6 mg/dL (7.8-10.44); Carbon Dioxide 24 mmol/L (23-31); Chloride 106 mmol/L (98-107); Estimated GFR 86; Globulin 2.7 g/dL (2.4-3.5); Glucose 91 mg/dL (80-115); Potassium 4.3 mmol/L (3.5-5.1); Protein, Total 6.9 g/dL (5.8-8.1); Sodium 141 mmol/L (136-145)
[2021-12-30] MEDS ORDERED: Lorazepam (BATCHED) 2 MG/ML SYR ONE (13:56)
[2021-12-30 15:34] LABS: Acetaminophen Less than 10.0 mcg/mL (10.0-30.0); Alcohol Less than 10 mg/dL (Less than 10); Salicylate Less than 8.0 mg/dL (15.0-30.0)
[2021-12-30] MEDS ORDERED: Ondansetron PF 4 MG/2 ML Vial IVP PRN (17:11)
[2021-12-30] MEDS ORDERED: Ondansetron ODT 4 MG TAB PO PRN (17:11)
[2021-12-30] MEDS ORDERED: Senokot S 8.6-50 MG TAB PO PRN (17:11)
[2021-12-30] MEDS ORDERED: Haloperidol Lactate 5 MG/ML VIAL IM SCH (17:14)
[2021-12-30 18:19] LABS: Bilirubin Negative (Negative); Blood, Urine Negative (Negative); Clarity Clear (Clear); Glucose, Urine (Dipstick) Normal (Negative); Ketone, Urine Negative (Negative); Leukocyte Negative Leu/uL (Negative); Nitrite Negative (Negative); Protein, Urine (Dipstick) Negative (Neg-Trace); Specific Gravity, Urine 1.012 (1.002-1.036); Urobilinogen Normal mg/dL (Less than 2)
[2021-12-30 19:18] VITALS: BMI 20.9
[2021-12-30] MEDS: hydrALAZINE 20 MG/ML VIAL SLOW IVP PRN (19:42)
[2021-12-30] MEDS: Sodium Chloride 0.9% 1,000 ML IV SCH (19:42)
[2021-12-30] MEDS: Tamsulosin HCl 0.4 MG CAP PO SCH (21:28)
[2021-12-30] MEDS: Famotidine/PF 20 mg/2ml Vial SLOW IVP SCH (21:28)
[2021-12-30 22:34] LABS: Amphetamine Not Detected (NotDetected); Barbiturates Screen Not Detected (NotDetected); Benzodiazepine Screen Not Detected (NotDetected); Cocaine Metabolite Screen Not Detected (NotDetected); Methadone Not Detected (NotDetected); Methamphetamine Not Detected (NotDetected); Opiate Screen Not Detected (NotDetected); Oxycodone Screen Not Detected (NotDetected); Phencyclidine (PCP) Not Detected (NotDetected); THC/Cannabinoid Screen Not Detected (NotDetected); Tricyclic Screen Not Detected (NotDetected)
[2021-12-30 23:03] LABS: SARS-CoV-2 NAA Rapid Test DETECTED (NotDetected)
[2021-12-30] MEDS ORDERED: Albuterol 200 PUFF (6.7GM INHALER) INH PRN (23:27)
[2021-12-30] MEDS ORDERED: Benzonatate 100 MG CAP PO PRN (23:27)
[2021-12-31] MEDS ORDERED: diphenhydrAMINE 25 MG CAP PO PRN (01:27)
[2021-12-31] MEDS: Sodium Chloride 0.9% 1,000 ML IV SCH (06:17)
[2021-12-31] MEDS ORDERED: Famotidine 20 MG TAB PO SCH (09:00)
[2021-12-31] MEDS: hydrALAZINE 20 MG/ML VIAL SLOW IVP PRN ×3 (09:45→19:54)
[2021-12-31] MEDS: Folic Acid 1 MG TAB PO SCH (09:48)
[2021-12-31] MEDS: Ascorbic Acid 500 mg Chewable Tablet PO SCH (11:21)
[2021-12-31] MEDS: Aspirin 81 mg Enteric Coated Tablet PO SCH (11:21)
[2021-12-31] MEDS: Cholecalciferol (Vitamin D3) 400 UNITS TAB PO SCH (11:21)
[2021-12-31] MEDS: Zinc Sulfate 220 MG CAP PO SCH (11:22)
[2021-12-31] MEDS: Multivit, Therapeutic 1 TAB PO SCH (11:22)
[2021-12-31] MEDS: Famotidine/PF 20 mg/2ml Vial SLOW IVP SCH ×2 (11:22→21:54)
[2021-12-31] MEDS: Thiamine 100 MG TAB PO SCH (11:22)
[2021-12-31 18:29] LABS: #Lymphocytes 1.3 thou/uL (1.20-3.40); #Monocytes 0.5 thou/uL (0.11-0.59); #Neutrophils 5.2 thou/uL (1.40-6.50); %Basophils 0.3 % (0.0-1.0); %Eosinophils 0.5 % (0.0-10.0); %Lymphocytes 18.6 % (21.0-51.0); %Monocytes 7.3 % (0.0-10.0); %Neutrophils 73.3 % (42.0-75.0); Hemoglobin 12.7 g/dL (14.0-18.0); Mean Corpuscular HGB CONC 34.7 g/dL (32.0-36.0); Mean Corpuscular Hemoglobin 35.5 pg (27.0-31.0); Mean Platelet Volume 7.7 fL (7.4-10.4); Platelet Count 238 thou/uL (130-400); RBC Distribution Width 11.6 % (11.5-14.5); Red Blood Cell (RBC) Count 3.58 mill/uL (4.70-6.10)
[2021-12-31 18:58] LABS: Anion Gap 16 mmol/L (10-20); BUN (Urea Nitrogen) 11 mg/dL (8.4-25.7); Calc. Creatinine Clearance 74 mL/min (70-130); Calcium 9.8 mg/dL (7.8-10.44); Carbon Dioxide 22 mmol/L (23-31); Chloride 102 mmol/L (98-107); Estimated GFR 93; Glucose 101 mg/dL (80-115); Potassium 4.8 mmol/L (3.5-5.1); Sodium 135 mmol/L (136-145)
[2022-01-01] MEDS: Tamsulosin HCl 0.4 MG CAP PO SCH ×2 (02:34→20:35)
[2022-01-01 04:26] LABS: #Eosinphils 0.1 thou/uL (0.0-0.7); #Lymphocytes 1.5 thou/uL (1.20-3.40); #Monocytes 0.6 thou/uL (0.11-0.59); #Neutrophils 4.7 thou/uL (1.40-6.50); %Basophils 0.7 % (0.0-1.0); %Eosinophils 0.8 % (0.0-10.0); %Lymphocytes 21.4 % (21.0-51.0); %Monocytes 8.3 % (0.0-10.0); %Neutrophils 68.8 % (42.0-75.0); Hemoglobin 13.4 g/dL (14.0-18.0); Mean Corpuscular HGB CONC 35.1 g/dL (32.0-36.0); Mean Platelet Volume 7.4 fL (7.4-10.4); Platelet Count 265 thou/uL (130-400); RBC Distribution Width 11.3 % (11.5-14.5); Red Blood Cell (RBC) Count 3.73 mill/uL (4.70-6.10); White Blood Cell (WBC) Count 6.8 thou/uL (4.8-10.8)
[2022-01-01 04:50] LABS: Anion Gap 14 mmol/L (10-20); BUN (Urea Nitrogen) 10 mg/dL (8.4-25.7); Calc. Creatinine Clearance 76 mL/min (70-130); Carbon Dioxide 24 mmol/L (23-31); Chloride 102 mmol/L (98-107); Estimated GFR 94; Glucose 101 mg/dL (80-115); Potassium 3.6 mmol/L (3.5-5.1); Sodium 136 mmol/L (136-145)
[2022-01-01] MEDS: Aspirin 81 mg Enteric Coated Tablet PO SCH (09:43)
[2022-01-01] MEDS: Multivit, Therapeutic 1 TAB PO SCH (09:43)
[2022-01-01] MEDS: Folic Acid 1 MG TAB PO SCH (09:43)
[2022-01-01] MEDS: Zinc Sulfate 220 MG CAP PO SCH (09:43)
[2022-01-01] MEDS: Famotidine/PF 20 mg/2ml Vial SLOW IVP SCH ×2 (09:43→20:35)
[2022-01-01] MEDS: Thiamine 100 MG TAB PO SCH (09:43)
[2022-01-01] MEDS: Ascorbic Acid 500 mg Chewable Tablet PO SCH (09:43)
[2022-01-01] MEDS: Cholecalciferol (Vitamin D3) 400 UNITS TAB PO SCH (09:44)
[2022-01-01] MEDS ORDERED: Moisturizing Cream (Eucerin) 113 GM JAR TOP PRN (11:42)
[2022-01-01] MEDS ORDERED: Artificial Tear Sol 15 ML BOT EA EYE PRN (11:42)
[2022-01-01] MEDS: hydrALAZINE 20 MG/ML VIAL SLOW IVP PRN (20:36)
[2022-01-02] MEDS: hydrALAZINE 20 MG/ML VIAL SLOW IVP PRN (01:19)
[2022-01-02 05:10] LABS: CRP (Inflammatory) 1.25 mg/dL (= or < 0.5); Magnesium 1.8 mg/dL (1.6-2.6)
[2022-01-02] MEDS: Zinc Sulfate 220 MG CAP PO SCH (09:41)
[2022-01-02] MEDS: Folic Acid 1 MG TAB PO SCH (09:41)
[2022-01-02] MEDS: Ascorbic Acid 500 mg Chewable Tablet PO SCH (09:41)
[2022-01-02] MEDS: Lisinopril 20 MG TAB PO SCH (09:42)
[2022-01-02] MEDS: Cholecalciferol (Vitamin D3) 400 UNITS TAB PO SCH (09:42)
[2022-01-02] MEDS: Famotidine/PF 20 mg/2ml Vial SLOW IVP SCH (09:42)
[2022-01-02] MEDS: Aspirin 81 mg Enteric Coated Tablet PO SCH (09:42)
[2022-01-02] MEDS: Multivit, Therapeutic 1 TAB PO SCH (09:43)
[2022-01-02] MEDS: Thiamine 100 MG TAB PO SCH (10:31)
[2022-01-03] MEDS: Tamsulosin HCl 0.4 MG CAP PO SCH ×2 (00:05→20:17)
[2022-01-03] MEDS: Donepezil HCl 5 MG TAB PO SCH ×2 (00:05→17:39)
[2022-01-03] MEDS: Famotidine/PF 20 mg/2ml Vial SLOW IVP SCH ×3 (00:06→20:17)
[2022-01-03 05:06] LABS: Anion Gap 15 mmol/L (10-20); BUN (Urea Nitrogen) 18 mg/dL (8.4-25.7); Calc. Creatinine Clearance 80 mL/min (70-130); Calcium 10.2 mg/dL (7.8-10.44); Carbon Dioxide 24 mmol/L (23-31); Chloride 103 mmol/L (98-107); Estimated GFR 95; Glucose 87 mg/dL (80-115); Potassium 3.3 mmol/L (3.5-5.1); Sodium 139 mmol/L (136-145)
[2022-01-03] MEDS: Ascorbic Acid 500 mg Chewable Tablet PO SCH (09:55)
[2022-01-03] MEDS: Folic Acid 1 MG TAB PO SCH (09:58)
[2022-01-03] MEDS: Lisinopril 20 MG TAB PO SCH (09:59)
[2022-01-03] MEDS: Multivit, Therapeutic 1 TAB PO SCH (10:00)
[2022-01-03] MEDS: Cholecalciferol (Vitamin D3) 400 UNITS TAB PO SCH (10:00)
[2022-01-03] MEDS: Amlodipine 5 MG TAB PO SCH (10:01)
[2022-01-03] MEDS: Aspirin 81 mg Enteric Coated Tablet PO SCH (10:01)
[2022-01-03] MEDS: Thiamine 100 MG TAB PO SCH (10:02)
[2022-01-03] MEDS: Zinc Sulfate 220 MG CAP PO SCH (10:02)
[2022-01-03] MEDS: Acetaminophen 325 MG TAB PO PRN (20:16)
[2022-01-04] MEDS: Acetaminophen 325 MG TAB PO PRN ×2 (04:43→10:22)
[2022-01-04] MEDS: Ascorbic Acid 500 mg Chewable Tablet PO SCH (10:16)
[2022-01-04] MEDS: Aspirin 81 mg Enteric Coated Tablet PO SCH (10:17)
[2022-01-04] MEDS: Cholecalciferol (Vitamin D3) 400 UNITS TAB PO SCH (10:17)
[2022-01-04] MEDS: Lisinopril 20 MG TAB PO SCH (10:17)
[2022-01-04] MEDS: Folic Acid 1 MG TAB PO SCH (10:20)
[2022-01-04] MEDS: Amlodipine 5 MG TAB PO SCH (10:21)
[2022-01-04] MEDS: Thiamine 100 MG TAB PO SCH (10:22)
[2022-01-04] MEDS: Multivit, Therapeutic 1 TAB PO SCH (10:22)
[2022-01-04] MEDS: Zinc Sulfate 220 MG CAP PO SCH (10:25)
[2022-01-04] MEDS: Famotidine/PF 20 mg/2ml Vial SLOW IVP SCH (10:37)
[2022-01-04 11:15] LABS: ALT (SGPT) 15 U/L (8-55); AST (SGOT) 18 U/L (5-34); Alkaline Phosphatase 88 U/L (40-110); Anion Gap 16 mmol/L (10-20); BUN (Urea Nitrogen) 30 mg/dL (8.4-25.7); Bilirubin, Total 0.4 mg/dL (0.2-1.2); Calc. Creatinine Clearance 58 mL/min (70-130); Calcium 9.9 mg/dL (7.8-10.44); Carbon Dioxide 24 mmol/L (23-31); Chloride 105 mmol/L (98-107); Estimated GFR 71; Globulin 2.7 g/dL (2.4-3.5); Glucose 96 mg/dL (80-115); Potassium 3.3 mmol/L (3.5-5.1); Protein, Total 6.7 g/dL (5.8-8.1); Sodium 142 mmol/L (136-145)
[2022-01-04 11:22] VITALS: BP 117/64; TEMP 96.7
== END 2022-01-04 14:42 | DRG 177 ==
LOC: ERS 12:27 → ERHOLD 16:10 → 2NO 18:42
PROVIDERS: ADMIT Internal Medicine; ATTEND Family Medicine
PROC: 8E0ZXY6 Isolation (ICD-10-PCS; principal; 2021-12-30)
DX: U07.1 COVID-19 (principal); G93.41 Metabolic encephalopathy; E44.0 Moderate protein-calorie malnutrition; I10 Essential (primary) hypertension; J44.9 Chronic obstructive pulmonary disease, unspecified; F32.A Depression, unspecified; I16.0 Hypertensive urgency; D64.9 Anemia, unspecified; F41.9 Anxiety disorder, unspecified; F10.10 Alcohol abuse, uncomplicated; Z66 Do not resuscitate; F03.90 Unspecified dementia, unspecified severity, without behavioral disturbance, psychotic disturbance, mood disturbance, and anxiety; N40.1 Benign prostatic hyperplasia with lower urinary tract symptoms; R33.8 Other retention of urine; Z87.891 Personal history of nicotine dependence; Z98.890 Other specified postprocedural states; Z79.82 Long term (current) use of aspirin; Z79.899 Other long term (current) drug therapy; Z91.81 History of falling; Z78.1 Physical restraint status; Z68.21 Body mass index [BMI] 21.0-21.9, adult
CPT/HCPCS: 36415; 70450; 71045; 80048; 80053; 80306; 80307; 81003; 82140; 82533; 83605; 83735; 84443; 84484; 85025; 86140; 93005; 93010; 96372; 96374; J0360; J1200; J1630; J2060; J3486; J7050; S0028

== ENCOUNTER 2023-12-01 03:05 | Emergency (ER) | payer MEDICARE, OTHER ==
[2023-12-01] MEDS ORDERED: Acetaminophen 500 MG TAB ONE (03:11)
== END 2023-12-01 05:33 | disposition home or self-care (01) ==
LOC: ERS 03:05
DX: S93.602A Unspecified sprain of left foot, initial encounter (principal); M25.552 Pain in left hip; I10 Essential (primary) hypertension; J44.9 Chronic obstructive pulmonary disease, unspecified; M15.9 Polyosteoarthritis, unspecified; W06.XXXA Fall from bed, initial encounter; Y93.89 Activity, other specified; Y92.129 Unspecified place in nursing home as the place of occurrence of the external cause; Z86.73 Personal history of transient ischemic attack (TIA), and cerebral infarction without residual deficits; Z87.891 Personal history of nicotine dependence; Z79.899 Other long term (current) drug therapy
CPT/HCPCS: 72170